=== PATIENT | female | born 1995 | race Caucasian/White ===

== ENCOUNTER 2016-04-29 14:36 | Emergency (ER) | payer BC, OTHER ==
[2016-04-29 14:47] VITALS: BP 134/81; PULSE 98; RESP 18; TEMP 98.8
--- NOTE | 2016-04-29 16:23 | ED ---
Female Urogenital HPI - General Chief complaint: OB/Uterine Contractions Stated complaint: Cramping - Preg Time Seen by Provider: 04/29/16 16:09 Source: patient, RN notes reviewed Mode of arrival: ambulatory Limitations: no limitations - History of Present Illness Initial comments: Patient is a 20-year-old female who presents to the emergency room for evaluation of abdominal cramping. Patient states she thinks she is about 17 weeks . Patient states her last menstrual period was in December. Patient states that she has been following up with Dr. Ny and has not received a ultrasound yet. Patient states her last in 2013 resulted in gastroischisis. Patient states she was told she had 50% chance of it happening to her next child. Patient states that after the abdominal cramping beginning yesterday, she started to get worried. Patient states she called her WAX BALL MOLDER and told her that the cramping was normal. Patient states she came here because would like an ultrasound to make sure everything is okay with her baby. Patient denies vaginal bleeding. Patient denies pain or burning during urination, trouble urinating or blood in urine. Patient denies any history of STDs. Patient has chest pain, shortness of breath, headache, dizziness, fevers, chills. Patient states the cramping is constant 7 out of 10 pain. Patient denies any nausea or vomiting. Last Menstrual Period: 12/24/15 - Related Data Home Medications Medication Instructions Recorded Confirmed Nif-Bvig-Okufm Acid 1 cap PO DAILY 10/06/13 10/06/13 [-U Capsule] Allergies Allergy/AdvReac Type Severity Reaction Status Date / Time hydrocodone Allergy Unknown Verified 04/29/16 15:59 Review of Systems ROS Statement: Those systems with pertinent positive or pertinent negative responses have been documented in the HPI. ROS Other: All systems not noted in ROS Statement are negative. Past Medical History Additional Past Medical History / Comment(s): HYPOGLYCEMIA History of Any Multi-Drug Resistant Organisms: None Reported Additional Past Surgical History / Comment(s): LEFT THUMB Past Psychological History: No Psychological Hx Reported Smoking Status: Former smoker Past Alcohol Use History: None Reported Past Drug Use History: None Reported General Exam - General Exam Comments Initial Comments: Sitting in exam room, no acute distress. Limitations: no limitations General appearance: alert, in no apparent distress Head exam: Present: atraumatic, normocephalic, normal inspection Eye exam: Present: normal appearance ENT exam: Present: normal exam Neck exam: Present: normal inspection Respiratory exam: Present: normal lung sounds bilaterally. Absent: respiratory distress Cardiovascular Exam: Present: regular rate, normal rhythm, normal heart sounds GI/Abdominal exam: Present: soft, normal bowel sounds. Absent: distended, tenderness, guarding, rebound, rigid Extremities exam: Present: normal inspection Back exam: Present: normal inspection Neurological exam: Present: alert, oriented X3, CN II-XII intact, normal gait Psychiatric exam: Present: normal affect, normal mood Skin exam: Present: warm, dry, intact, normal color. Absent: rash Course Vital Signs 04/29/16 14:44 Temperature 98.8 F Pulse Rate 98 Respiratory 18 Rate Blood Pressure 134/81 O2 Sat by Pulse 100 Oximetry Medical Decision Making - Medical Decision Making Patient is a 20-year-old female presents emergency room for evaluation abdominal cramping during . Patient believes she is about 17 weeks . Patient requested to have an ultrasound since she has not had one, since finding out she was . After ultrasound was complete, patient left the emergency room without telling anyone or following up with lab results. - Lab Data Lab Results 04/29/16 04/29/16 04/29/16 Range/Units 16:18 16:18 16:18 HCG, Quant 30585.5 mIU/mL Urine Color Yellow Urine Appearance Cloudy H (Clear) Urine pH 7.0 (5.0-8.0) Ur Specific [place] 1.018 (1.001-1.035) Urine Protein Trace H (Negative) Urine Glucose (UA) Negative (Negative) Urine Ketones Negative (Negative) Urine Blood Negative (Negative) Urine Nitrate Negative (Negative) Urine Bilirubin Negative (Negative) Urine Urobilinogen <2.0 (<2.0) mg/dL Ur Leukocyte Esterase Negative (Negative) Urine RBC 2 (0-5) /hpf Urine WBC 3 (0-5) /hpf Ur Squamous Epith Cells 11 H (0-4) /hpf Urine Mucus Occasional H (None) /hpf Blood Type A Positive Blood Type Recheck No - Radiology Data Radiology results: report reviewed, image reviewed Disposition Clinical Impression: Abdominal cramping affecting Disposition: Left Against Medical Advice Condition: Stable Referrals: Jian Schwartz Jr, DO [Primary Care Provider] - 1-2 days Time of Disposition: 17:30
[2016-04-29 16:40] LABS: Appearance,Urine Cloudy (Clear); Bilirubin,Urine Negative (Negative); Glucose,Urine (UA) Negative (Negative); Ketones,Urine Negative (Negative); Leukocyte Esterase,Urine Negative (Negative); Mucus,Urine Occasional /hpf; Nitrite,Urine Negative (Negative); Particle Count 6960; Protein,Urine Trace (Negative); RBC,Urine 2 /hpf (0-5); Specific Gravity,Urine 1.018 (1.001-1.035); Squamous Epithelial Cell,Urine 11 /hpf (0-4); UA Billing (MACRO vs. MICRO) MICRO; Urobilinogen,Urine <2.0 mg/dL (<2.0); WBC,Urine 3 /hpf (0-5)
--- NOTE | 2016-04-29 17:51 | US ---
EXAMINATION TYPE: US OB <= 14 wk fetus DATE OF EXAM: 04/29/2016 5:10 PM COMPARISON: None CLINICAL HISTORY: Pain. EXAM PERFORMED: Transabdominal (TA) EXAM MEASUREMENTS GESTATIONAL AGE / DATING Physician Established: not yet established Dates by LMP: (17 weeks/3 days) EDC: 10/04/16 Dates by First Scan: 1st scan today Dates by Current Scan for: (12 weeks/1 days) EDC: 11/10/16 MATERNAL ANATOMY Uterus: 13.6 x 7.1 x 9.7cm Right Ovary: 3.4 x 2.2 x 1.8cm Left Ovary: 3.1 x 1.6 x 1.6cm Post CDS / Adnexa: wnl Presence of free fluid: no GESTATION / SURVEY CRL: 5.6cm 12weeks/1 days) Yolk Sac (normal less than 6mm): not seen Heart Rate: 161pm Rhythm: Normal IUP: Viable IUP Date of LMP: patient doesn't remember, but believes date was set by LMP IMPRESSION: SINGLE VIABLE IUP.
== END 2016-04-29 17:26 | disposition left against medical advice (07) ==
LOC: EC 14:36
DX: O99.89 Other specified diseases and conditions complicating pregnancy, childbirth and the puerperium (principal); R07.9 Chest pain, unspecified; R06.02 Shortness of breath; R51 Headache; R42 Dizziness and giddiness; Z3A.17 17 weeks gestation of pregnancy; Z87.891 Personal history of nicotine dependence; Z79.899 Other long term (current) drug therapy; Z88.5 Allergy status to narcotic agent
CPT/HCPCS: 36415; 76801; 76813; 81001; 84702; 86900; 86901; 99284

== ENCOUNTER 2016-09-09 12:08 | Outpatient (CLI) | payer BC, OTHER ==
[2016-09-09 13:22] VITALS: BP 135/63; PULSE 89; RESP 18; TEMP 97.5
--- NOTE | 2016-09-15 07:45 | P.MSEPDOC ---
Presenting Problems - Arrival Data Date of Arrival on Unit: 09/09/16 Time of Arrival on Unit: 12:20 Mode of Transport: Ambulatory - Complaint OB-Reason for Admission/Chief Complaint: Dizziness Comment: Pt was light-headed, dizzy, hot, and felt her abdomen tighen while working Medical History - Information : 2 Para: 1 Term: 1 : 0 Abortions: Spontaneous or Elective: 0 Number of Living Children: 1 - Gestational Age Expected Date of Delivery: 11/12/16 Gestational Age by CHANCE (wks/days): 31 Weeks and 5 Days Review of Systems - Review of Systems Constitutional: No problems, Recent weight loss Breast: No problems ENT: No problems Cardiovascular: No problems Respiratory: No problems Gastrointestinal: No problems Genitourinary: No problems Musculoskeletal: No problems Neurological: Dizziness Skin: No problems Vital Signs - Temperature Temperature: 97.5 F Temperature Source: Temporal Artery Scan - Pulse Pulse Oximetery Pulse Rate: 89 Pulse Assessment Method: Automatic Cuff - Respirations Respiratory Rate: 18 Oxygen Delivery Method: Room Air - Blood Pressure Right Arm Blood Pressure: 135/63 Blood Pressure Mean: 87 Blood Pressure Source: Automatic Cuff Medical Screen Scoring (Pre) - Cervical Exam Dilation: Exam Deferred Effacement: Exam Deferred Membranes: Intact - Uterine Contractions Frequency: N/A - Maternal Vital Signs Maternal Temperature: N/A Signs of Preeclampsia: N/A Maternal Respirations: N/A - Maternal Trauma Maternal Trauma: N/A - Assessment Baseline FHR: 125 Heart Rate - NICHD Category: Category I (Normal) = 0 NST: Reactive Position: N/A Station: N/A - Total Score Total Score (Pre): 0 - Level of Risk Level of Risk: Low (0-5) Physician Notification (Pre) - Physician Notified Physician Notified Date: 09/09/16 Physician Notified Time: 12:50 Physician/Practitioner Notifed:: Dr Rosenberg Spoke With: Dr Rosenberg New Order Received: Yes - Notification Comment Comment: Ok to discharge home Disposition - Disposition OB Disposition: Discharge to home Discharge Date: 09/09/16 Discharge Time: 12:55 I agree with the RN Medical Screening Exam: Yes Risk & Benefit of care provided described in d/c instruction: Yes Diagnosis: DIZZINESS AND GIDDINESS
== END 2016-09-09 12:55 | disposition home or self-care (01) ==
LOC: FBPOP 12:08
PROVIDERS: ATTEND Obstetrics & Gynecology
DX: O99.89 Other specified diseases and conditions complicating pregnancy, childbirth and the puerperium (principal); R42 Dizziness and giddiness; Z3A.31 31 weeks gestation of pregnancy
CPT/HCPCS: 59025; 99213

== ENCOUNTER 2016-11-04 03:22 | Inpatient (IN) | payer BC, OTHER ==
[2016-11-04] MEDS ORDERED: ceFAZolin 2 GM in SODIUM CHLORIDE 0.9% 100 ML IVPB ONE (04:36)
[2016-11-04] MEDS ORDERED: CITRIC ACID-SODIUM CITRATE 15 ML CUP PO ONE (04:36)
[2016-11-04] MEDS: LACTATED RINGERS 1,000 ML IV SCH ×2 (05:13→14:30)
[2016-11-04 05:16] LABS: Anisocytosis Slight; Basophils # (A) 0.1 k/uL (0-0.2); Basophils % (A) 0 %; CH 29.8; CHCM 33.4; Eosinophils # (A) 0.1 k/uL (0-0.7); Eosinophils % (A) 1 %; HCT 37.4 % (34.0-46.0); HGB 12.1 gm/dL (11.4-16.0); Luc # (Auto) 0.21; Luc % (Auto) 2; Lymphocytes # (A) 2.1 k/uL (1.0-4.8); Lymphocytes % (A) 20 %; MCH 29.1 pg (25.0-35.0); MCHC 32.3 g/dL (31.0-37.0); Mean Platelet Volume 8.5; Monocytes # (A) 0.7 k/uL (0-1.0); Monocytes % (A) 7 %; Neutrophils # (A) 7.6 k/uL (1.3-7.7); Neutrophils % (A) 70 %; RBC 4.16 m/uL (3.80-5.40); RDW 16.1 % (11.5-15.5); WBC 10.8 k/uL (3.8-10.6); WBC (Perox) 11.26
[2016-11-04 05:19] VITALS: BMI 35.0
--- NOTE | 2016-11-04 07:20 | P.HPOB ---
History of Present Illness H&P Date: 11/04/16 Chief Complaint: My water broke at 4 AM, clear fluid This is a 21-year-old white female 2 para 1001 EDC 11/12/2016 at 38-6/7 weeks' gestation. Patient is scheduled for repeat section and tubal ligation tomorrow at 39 weeks. However, she presents this morning with spontaneous rupture of membranes, clear fluid at approximately 4 AM. She is having regular strong uterine contractions and is noted to be in active labor. She denies vaginal bleeding. Past surgical history significant for low transverse section for gastroschisis in 2013. Current medications vitamins daily. ALLERGIES include Vicodin to which reports passing out. Past social history is significant for patient being single, father of the baby involved in the . 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 Family history significant for hypertension and gastroschisis. history blood type A+, rubella status immune. Urine culture, hepatitis B surface antigen, HIV testing, gonorrhea and chlamydia cultures, 1 hour Glucola all negative. Group B strep cultures negative. On exam this is a pleasant white female, she is 5 foot 6 inches, approximately 220 pounds, vital signs are stable and she is afebrile. The general physical exam is within normal limits. The extremities reveal no edema. Cervix is 1-2 cm dilated, 50-60% effaced, -2 station, vertex presentation. There is obvious clear fluid on the perineal body. heart rate is consistent with reactive NST. Impression: 38-6/7 weeks intrauterine , active labor, previous C- section declining . Wishing permanent tubal sterilization utilizing sutures , not Filshie clips. Plan: We will proceed with repeat low transverse section and tubal ligation via modified Tat[place] technique. All risks and benefits of procedure have been discussed. Anesthesia team available. Review of Systems Constitutional: Reports as per HPI Past Medical History Past Medical History: No Reported History Additional Past Medical History / Comment(s): HYPOGLYCEMIA History of Any Multi-Drug Resistant Organisms: None Reported Past Surgical History: No Surgical Hx Reported Additional Past Surgical History / Comment(s): LEFT THUMB Past Anesthesia/Blood Transfusion Reactions: No Reported Reaction Past Psychological History: No Psychological Hx Reported Smoking Status: Never smoker Past Alcohol Use History: None Reported Past Drug Use History: None Reported - Past Family History Father Family Medical History: Hypertension Medications and Allergies Home Medications Medication Instructions Recorded Confirmed Type Pnv No.95/Ferrous Fum/Folic AC 1 each PO DAILY 11/03/16 11/04/16 History [ Multivitamin Tablet] Allergies Allergy/AdvReac Type Severity Reaction Status Date / Time hydrocodone Allergy passed out Verified 11/04/16 03:53 Exam - Vital Signs Vital signs: Vital Signs Temp Pulse Resp BP Pulse Ox 11/04/16 04:39 97 F L 82 18 143/71 98 11/04/16 03:54 97.0 F L 85 18 132/75 98 Intake and Output 11/03/16 11/04/16 11/04/16 22:59 06:59 14:59 Other: Weight 98.43 kg See dictation under HPI please Results Result Diagrams: 11/04/16 05:05 Abnormal Lab Results - Last 24 Hours (Table) 11/04/16 Range/Units 05:05 WBC 10.8 H (3.8-10.6) k/uL RDW 16.1 H (11.5-15.5) % Assessment and Plan Plan: For repeat low transverse section and tubal ligation with modified [place] technique. All risks and benefits of procedure discussed with patient. She has been nothing by mouth since 11 PM last night. Time with Patient: Less than 30
[2016-11-04] MEDS ORDERED: DEXAMETHASONE SOD PHOS (MDV) 100 MG/10 ML VIAL ONE (07:36)
[2016-11-04] MEDS ORDERED: KETOROLAC 30 MG/ML 1 ML VIAL ONE (07:36)
[2016-11-04] MEDS ORDERED: OXYTOCIN 10 UNIT/ML 1 ML VIAL ONE (07:36)
[2016-11-04] MEDS ORDERED: ONDANSETRON 4 MG/2 ML VIAL ONE (07:36)
[2016-11-04] MEDS ORDERED: ePHEDrine SULFATE/0.9% NACL/PF 50 MG/5 ML SYRINGE IV ONE (07:36)
[2016-11-04] MEDS ORDERED: MORPHINE SULFATE (PF) 0.3 MG/0.3 ML SYR ONE (07:36)
[2016-11-04] MEDS ORDERED: NALBUPHINE 10 MG/ML AMPUL ONE (07:36)
[2016-11-04] MEDS ORDERED: METOCLOPRAMIDE 5 MG/ML 2 ML VIAL IVP PRN (08:28)
[2016-11-04] MEDS ORDERED: KETOROLAC 30 MG/ML 1 ML VIAL IVP PRN (08:28)
[2016-11-04] MEDS ORDERED: diphenhydrAMINE 25 MG CAP PO PRN (08:28)
[2016-11-04] MEDS ORDERED: ZOLPIDEM 5 MG TAB PO PRN (08:28)
[2016-11-04] MEDS ORDERED: diphenhydrAMINE 50 MG CAP PO PRN (08:28)
[2016-11-04] MEDS ORDERED: ACETAMINOPHEN TAB 325 MG TAB PO PRN (08:28)
[2016-11-04] MEDS ORDERED: NALOXONE 0.4 MG/ML 1 ML VIAL IV PRN (08:28)
[2016-11-04] MEDS ORDERED: ONDANSETRON 4 MG/2 ML VIAL IVP PRN (08:28)
[2016-11-04] MEDS ORDERED: diphenhydrAMINE 50 MG/ML 1 ML VIAL IVP PRN ×2 (08:28)
--- NOTE | 2016-11-04 08:28 | P.OP ---
Date of Procedure: 11/04/16 Preoperative Diagnosis: Previous , declining , 38-6/7 weeks, spontaneous rupture of membranes in active labor. Postoperative Diagnosis: Same, liveborn female infant with right club foot. Normal-appearing tubes and ovaries. Procedure(s) Performed: Repeat low transverse section with tubal ligation, modified ashvin technique. Implants: Anesthesia: spinal Surgeon: Lashae Ny Costume Draper #1: Darshan Rosenberg Estimated Blood Loss (ml): 500 IV fluids (ml): 1,000 Urine output (ml): 600 Pathology: other (Placenta, and bilateral tubal segments) Condition: stable Disposition: PACU Indications for Procedure: Operative Findings: Description of Procedure: Patient is scheduled for repeat section tomorrow, but presents with spontaneous amniorrhexis at home, clear fluid, and active labor. She denies vaginal bleeding. She has been nothing by mouth since 11 PM the night prior to admission. is otherwise unremarkable, group B strep cultures negative , please see my dictated history and physical for details. Bicitra is given, Tamez catheter placed, patient is brought to the operating room where a spinal analgesia is administered without difficulty per Dr. Quintero. She is placed in the dorsal supine position with left lateral uterine displacement. The abdomen is prepped and draped in usual sterile fashion. The appropriate timeout is performed. Antibiotics are given. The analgesia is checked and noted to be adequate. A repeat low transverse skin incision is made in this is carried down through the subcutaneous tissue which is approximately 6-8 cm deep. Fascia is isolated, scored and extended bilaterally with curved Devine scissors. Peritoneum is next identified and incised, there is no bowel or bladder involvement. The bladder flap is created and the bladder blade is placed over the dome of the bladder to avoid bladder and/or ureteral injury. A repeat low transverse uterine incision is made in this is carried down through the thin myometrium. Upon entering the uterine cavity clear fluid is noted. The incision is extended bluntly. The infant's head is delivered in the right occiput transverse position. The oropharynx, nasopharynx and external nares were all bulb suctioned. Patient is officially delivered of a liveborn female infant at 0757 hours. Umbilical cord is doubly clamped and ligated, she is handed to waiting nurses for evaluation where scores of 9 and 9 at one and 5 minutes respectively are given. The placenta is delivered manually, it is inspected and noted to be intact with trivascular cord at 0758 hours. The uterus is then externalized and massaged. Oxytocin is given. The uterus is swept clean with a sterile sponge to avoid any retained products of conception. The uterus is closed in a single full- thickness running locking stitch of 0 Vicryl for excellent reapproximation and hemostasis. Patient's wishes for tubal ligation is once again confirmed. The right fallopian tube is grasped in the isthmic portion. The mesal salpinx is opened with electrocautery. 0 Vicryl sutures used to tie the tube with 3 kn, a large loop of tube is created and retied on the opposite and. The suture is cut. And the tube was retied a second time firmly with 0 Vicryl suture. The tubal section is then removed with electrocautery. It is sent to pathology for evaluation. The stumps are cauterized for excellent hemostasis. Please note that the fimbriated end of the tube has been identified for proper technique. Ovary appears normal to inspection. The same procedure is carried out on the contralateral tube, again with segment of tube sent to pathology for evaluation. Left ovary also appears normal. The abdomen is suctioned with suction on guard and the uterus is gently placed back into the abdominal cavity. Bilateral gutters are inspected and cleaned. The peritoneum is allowed to close by secondary intention. The fascia is closed in a running stitch of 0 Vicryl with over ligation in the midline. Subcutaneous tissue is irrigated, inspected and noted to be clean and dry. It is reapproximated with 3-0 Vicryl in a running fashion. 4-0 undyed Vicryl issues for final skin closure. Steri-Strips and Mastisol are applied to the wound. Uterus is then massaged, a small amount of lochia is obtained. The incision is dressed. The urine is noted to be clear in the Tamez tube. All sponge needle and enhancement counts are correct at the end of our procedure. Patient is brought back to the recovery room in very good condition with stable vital signs including a pulse of 88, blood pressure 120/60, 100% O2 saturation. Baby weighed 8 lbs. 7 oz. or 3840 g. In inspecting the baby a right clubfoot is suspected. This will be discussed with larder cook and further recommendations will follow.
[2016-11-04] MEDS ORDERED: LACTATED RINGERS 1,000 ML IV SCH (08:30)
--- NOTE | 2016-11-05 07:16 | P.PN ---
Subjective Principal diagnosis: Postoperative day #1 Objective - Vital Signs Vital signs: Vital Signs Temp 97.9 F 11/05/16 04:00 Pulse 86 11/05/16 04:00 Resp 16 11/05/16 04:00 BP 107/76 11/05/16 04:00 Pulse Ox 98 11/05/16 00:00 Intake & Output 11/04/16 11/05/16 11/05/16 18:59 06:59 18:59 Output Total 2700 600 Balance -2700 -600 Output: Urine 2200 600 Uretheral (Tamez) 600 600 Estimated Blood Loss 500 Other: # Voids 1 0 - Constitutional General appearance: Present: average body habitus, cooperative - EENT Eyes: Present: PERRLA ENT: Present: hearing grossly normal - Respiratory Respiratory: bilateral: CTA - Cardiovascular Rhythm: regular - Gastrointestinal General gastrointestinal: Present: normal bowel sounds - Genitourinary Genitourinary Comment(s): Fundus firm, midline, symmetric, 18 week size. Active bowel sounds. Incision clean and dry, intact with Steri-Strips applied. - Integumentary Integumentary: Present: normal - Neurologic Neurologic: Present: CNII-XII intact - Musculoskeletal Musculoskeletal: Present: gait normal, strength equal bilaterally - Psychiatric Psychiatric: Present: A&O x's 3, appropriate affect, intact judgment & insight - Labs CBC & Chem 7: 11/04/16 05:05 Assessment and Plan Plan: Check CBC this morning. Advance Diet and activity. Time with Patient: Less than 30
[2016-11-05 07:41] LABS: Basophils % (A) 0 %; CH 28.5; CHCM 32.4; Eosinophils # (A) 0.1 k/uL (0-0.7); Eosinophils % (A) 1 %; HCT 29.3 % (34.0-46.0); HDW 2.89; Luc # (Auto) 0.25; Luc % (Auto) 3; Lymphocytes # (A) 2.3 k/uL (1.0-4.8); Lymphocytes % (A) 24 %; MCH 29.3 pg (25.0-35.0); MCHC 33.1 g/dL (31.0-37.0); MCV 88.5 fL (80.0-100.0); Mean Platelet Volume 8.1; Monocytes # (A) 0.6 k/uL (0-1.0); Monocytes % (A) 7 %; Neutrophils # (A) 6.3 k/uL (1.3-7.7); Neutrophils % (A) 66 %; RBC 3.31 m/uL (3.80-5.40); RDW 15.1 % (11.5-15.5); WBC 9.6 k/uL (3.8-10.6); WBC (Perox) 9.82
[2016-11-05 07:47] LABS: HGB 9.7 gm/dL (11.4-16.0)
--- NOTE | 2016-11-05 09:27 | P.PN ---
Progress Note - Text Date:11/05 Time:705 Patient is status post . Patient seen this morning with VAS score of 2. c/o of pruritus, no c/o nausea/vomiting, comfortable and doing well.
[2016-11-05] MEDS: SENNOSIDES-DOCUSATE SODIUM 1 EACH TAB PO SCH ×2 (13:19→23:51)
[2016-11-05] MEDS: IBUPROFEN 600 MG TAB PO PRN ×2 (15:01→23:50)
[2016-11-06] MEDS: IBUPROFEN 600 MG TAB PO PRN (08:23)
--- NOTE | 2016-11-06 08:50 | P.DS ---
Providers Date of admission: 11/04/16 04:28 Expected date of discharge: 11/06/16 Attending physician: Lashae Ny Primary care physician: Stated None Hospital Course: This is a 21 year old 2 para 1001 who presented to the hospital in active labor with spontaneous amniorrhexis, clear fluid. She had a history of a previous section, and is declining . She is choosing repeat C- section with tubal ligation. was unremarkable, group B strep cultures negative, rubella status immune. Please see my dictated history and physical for details. A spinal was placed and patient underwent a repeat low transverse section with tubal ligation. She did well intraoperatively with an estimated blood loss of 500 mL's. She gave to a liveborn female with scores of 9 and 9 at one and 5 minutes respectively. Infant weighed 3840 g or 8 lbs. 7 oz. was noted to be in the right occiput transverse position. Tubal ligation was performed, please see my dictated operative note for details. This morning the patient is doing well. She is voiding, ambulating and passing flatus without difficulty. Vital signs are stable and she is afebrile. Incision is clean and dry, intact, with Steri-Strips and Mastisol applied. Fundus is firm, midline, mobile and non-tender. Pain relief is adequate using ibuprofen products. Patient claims to have a hydrocodone ALLERGY. She is being discharged home today in good condition. She will follow-up with me in the office in 2 weeks for an incision check. I have reminded her no intercourse, tampons or douching. She will use [id number] Aleve products , as directed on the bottle. I have asked her to call me with any fevers shakes or chills, foul smelling or copious lochia, with the passage of large blood clots, with any pain not alleviated by Aleve, or indeed with any concerns. will follow-up with agricultural loan officer as recommended. Patient Condition at Discharge: Good Plan - Discharge Summary New Discharge Prescriptions: No Action Pnv No.95/Ferrous Fum/Folic AC [ Multivitamin Tablet] 1 each PO DAILY Discharge Medication List Pnv No.95/Ferrous Fum/Folic AC [ Multivitamin Tablet] 1 each PO DAILY [History] Follow up Appointment(s)/Referral(s): Lashae Ny MD [STAFF PHYSICIAN] - 2 Weeks Discharge Disposition: HOME SELF-CARE
[2016-11-06 09:21] VITALS: BP 116/79; PULSE 72; RESP 17; TEMP 98.2
[2016-11-06] MEDS: SENNOSIDES-DOCUSATE SODIUM 1 EACH TAB PO SCH (09:29)
== END 2016-11-06 12:50 | disposition home or self-care (01) | DRG 766 ==
LOC: FBPOP 03:22 → 4FBP 04:28
PROVIDERS: ADMIT Obstetrics & Gynecology; ATTEND Obstetrics & Gynecology
PROC: 0UB70ZZ Excision of Bilateral Fallopian Tubes, Open Approach (ICD-10-PCS; 2016-11-04)
PROC: 10D00Z1 Extraction of Products of Conception, Low, Open Approach (ICD-10-PCS; principal; 2016-11-04 07:37)
DX: O34.211 Maternal care for low transverse scar from previous cesarean delivery (principal); O75.82 Onset (spontaneous) of labor after 37 completed weeks of gestation but before 39 completed weeks gestation, with delivery by (planned) cesarean section; Z3A.38 38 weeks gestation of pregnancy; Z37.0 Single live birth; Z30.2 Encounter for sterilization; Z79.899 Other long term (current) drug therapy; Z88.5 Allergy status to narcotic agent
CPT/HCPCS: 59025; 84112; 85025; 86850; 86900; 86901; 88302; 88307; 99213

== ENCOUNTER 2018-06-29 10:28 | Day surgery (SDC) | payer BC ==
[2018-06-27 12:56] VITALS: BMI 29.9
[~2018-06-29 10:28] MED LIST: LACTATED RINGERS 1,000 ML IV SCH; LIDOCAINE 1% 20 ML VIAL (10MG/ML) FOR IV START INTRADERMA PRN; MIDAZOLAM (PF) 2 MG/2 ML VIAL IV PRN
[2018-06-29 11:37] VITALS: RESP 16; TEMP 97.8
[2018-06-29] MEDS ORDERED: MIDAZOLAM 2 MG/2 ML VIAL ONE (13:11)
[2018-06-29] MEDS ORDERED: PROPOFOL 10 MG/ML 20 ML VIAL IV ONE (13:11)
[2018-06-29] MEDS ORDERED: LIDOCAINE 1% INJ 10MG/ML (20 ML MDV) ONE (13:11)
--- NOTE | 2018-06-29 13:53 | P.PCN ---
Date of Procedure: 06/29/18 Procedure(s) Performed: PREOPERATIVE DIAGNOSIS: Rectal bleeding POSTOPERATIVE DIAGNOSIS: Small posterior anal fissure PROCEDURE: Colonoscopy ANESTHESIA: MAC SURGEON: Shamir Holland M.D. SPECIMENS: None ENDOSCOPIC PROCEDURE: The patient was placed on the endoscopy table in the left decubitus position. The Olympus colonoscope was inserted into the anus and passed under direct visualization to the base of the cecum. The appendiceal orifice was visualized. From that point the scope was slowly withdrawn inspecting all surfaces carefully. There were no neoplastic inflammatory or polypoid lesions throughout the cecum, ascending, transverse, descending, sigmoid and rectum. There was no visible diverticulosis noted. Digital rectal examination revealed mild induration posteriorly. The anoscope was also utilized. With anus scope was able to identify a small posterior anal fissure. A small area of bleeding was seen there. The patient was taken to the recovery room in stable condition per anesthesia guidelines. RECOMMENDATIONS: We'll begin nitroglycerin ointment. Patient will follow-up in the office of symptoms persist.
[2018-06-29 14:26] VITALS: BP 137/89; PULSE 71
== END 2018-06-29 15:21 | disposition home or self-care (01) ==
LOC: ORWHC2ENDO 10:28
PROVIDERS: ATTEND Surgery
DX: K60.2 Anal fissure, unspecified (principal); Z88.5 Allergy status to narcotic agent; Z79.899 Other long term (current) drug therapy; F17.210 Nicotine dependence, cigarettes, uncomplicated
CPT/HCPCS: 81025; 45378; J2250; J2001; J2704

== ENCOUNTER 2018-11-21 09:05 | Emergency (ER) | payer BC ==
[2018-11-21 09:08] VITALS: BP 120/78; PULSE 80; RESP 18; TEMP 98
[2018-11-21] MEDS ORDERED: LIDOCAINE 1% INJ 10MG/ML (20 ML MDV) SQ ONE (09:15)
--- NOTE | 2018-11-21 09:24 | ED ---
Wound/Laceration HPI - General Chief Complaint: Wound/Laceration Stated Complaint: lt foot lac Time Seen by Provider: 11/21/18 09:09 Source: patient Mode of arrival: ambulatory Limitations: no limitations - History of Present Illness Initial Comments: A resident 23-year-old feel presented laceration to left heel. Patient states that she was in her attic when she struck her heel on a metal object. Patient states that it is not very painful however she noticed she was bleeding. This is around 8 PM at night. Patient states that she cleaned out the area and applied Band-Aids and went to bed. Patient states she noticed that the wound edges were gaping and thought might need repair presents emergency department in the morning for evaluation. Patient states that her tetanus up-to-date. Patient denies injury to the ankle or foot. Remaining review systems negative patient appears well upon arrival ambulate ambulating without difficulty. - Related Data Home Medications Medication Instructions Recorded Confirmed Dextroamphetamine/Amphetamine 20 mg PO BID 02/20/18 06/29/18 [Adderall] Allergies Allergy/AdvReac Type Severity Reaction Status Date / Time hydrocodone Allergy passed out" Verified 11/21/18 09:08 Review of Systems ROS Statement: Those systems with pertinent positive or pertinent negative responses have been documented in the HPI. ROS Other: All systems not noted in ROS Statement are negative. Past Medical History Past Medical History: No Reported History Additional Past Medical History / Comment(s): HEART MURMUR. HYPOGLYCEMIA AT AGE 14, RESOLVED. HAVING BLOOD IN STOOL History of Any Multi-Drug Resistant Organisms: None Reported Past Surgical History: Section, Tubal Ligation Additional Past Surgical History / Comment(s): WISDOM TEETH. LT THUMB TENDON SURGERY , C-S X2. Past Anesthesia/Blood Transfusion Reactions: No Reported Reaction Past Psychological History: ADD/ADHD Smoking Status: Current some day smoker Past Alcohol Use History: None Reported Past Drug Use History: None Reported - Past Family History Mother Family Medical History: Cancer Father Family Medical History: Hypertension General Exam - General Exam Comments Initial Comments: General: The patient is awake and alert, in no distress, and does not appear acutely ill. Eye: Pupils are equal, round and reactive to light, extra-ocular movements are intact. No nystagmus. There is normal conjunctiva bilaterally. No signs of icterus. Cardiovascular: There is a regular rate and rhythm. No murmur, rub or gallop is appreciated. Respiratory: Lungs are clear to auscultation, respirations are non-labored, breath sounds are equal. No wheezes, stridor, rales, or rhonchi. Musculoskeletal: Normal ROM, no tenderness. Strength 5/5. Sensation intact. Pulses equal bilaterally 2+. Neurological: A&O x 3. CN II-XII intact, There are no obvious motor or sensory deficits. Coordination appears grossly intact. Speech is normal. Skin: Skin is warm and dry and no rashes or lesions are noted. 2 cm curvilinear laceration that appears superficial no exposure of underlying structures or foreign body of the left posterior heel, and calloused region. No active bleeding. Psychiatric: Cooperative, appropriate mood & affect, normal judgment. Limitations: no limitations Course Vital Signs 11/21/18 09:06 Temperature 98.0 F Pulse Rate 80 Respiratory 18 Rate Blood Pressure 120/78 O2 Sat by Pulse 99 Oximetry Procedures - Laceration Laceration #1 Consent Obtained: verbal consent Indication: laceration Site: foot Size (cm): 2 Description: irregular, clean Depth: simple, single layer Anesthetic Used: lidocaine 1% Pre-repair: wound explored, irrigated extensively, deep structures intact Size of Sutures: 4-0 Number of Sutures: 5 Technique: simple, interrupted Patient Tolerated Procedure: well, no complications Additional Comments: Wound was extensively irrigated and cleansed with iodine prior to closure. Patient did not prefer lidocaine use she states she would rather have it without anesthesia given the pain with lidocaine use. Medical Decision Making - Medical Decision Making Well-appearing 23-year-old female presented for a laceration. Patient has no other complaints no swelling patient is neurovascularly intact upon examination the foot. Laceration is very superficial no evidence of foreign body or damage to underlying structures. In the region near a callus. No active bleeding. Tetanus up-to-date per patient. Wound was closed. Patient however procedure well without local anesthetic. Return parameters were discussed for suture removal as well as wound care. Patient verbalized understanding and was discharged appearing well after discussing the case with attending provider Dr. Escobedo Disposition Clinical Impression: Laceration of heel without complication Disposition: HOME SELF-CARE Condition: Good Instructions (If sedation given, give patient instructions): Care For Your Stitches (ED), Laceration (ED) Additional Instructions: Please use medication as discussed. Please follow-up for suture removal in 7 days. Please return to emergency room if the symptoms increase or worsen or for any other concerns--including redness, drainage, increasing pain. Is patient prescribed a controlled substance at d/c from ED?: No Referrals: Tima Chung MD [Primary Care Provider] - 1-2 days Time of Disposition: 10:04
== END 2018-11-21 10:10 | disposition home or self-care (01) ==
LOC: EC 09:05
DX: S91.312A Laceration without foreign body, left foot, initial encounter (principal); F90.9 Attention-deficit hyperactivity disorder, unspecified type; F17.200 Nicotine dependence, unspecified, uncomplicated; Z79.899 Other long term (current) drug therapy; Z88.5 Allergy status to narcotic agent; W22.8XXA Striking against or struck by other objects, initial encounter; Y92.89 Other specified places as the place of occurrence of the external cause
CPT/HCPCS: 99282; 12001; J2001

== ENCOUNTER 2018-12-15 10:41 | Day surgery (SDC) | payer BC ==
[2018-12-11 11:15] VITALS: BMI 29.9
[~2018-12-15 10:41] MED LIST changes: +DEXAMETHASONE SOD PHOSPHATE 10 MG/ML 1 ML VIAL IV ONE; +HEPARIN SODIUM,PORCINE 5,000 UNIT/ML 1 ML VIAL SQ ONE; -LIDOCAINE 1% 20 ML VIAL (10MG/ML) FOR IV START INTRADERMA PRN; +LIDOCAINE 1% 20 ML VIAL (10MG/ML) FOR IV START SQ ONE; -MIDAZOLAM (PF) 2 MG/2 ML VIAL IV PRN; +MIDAZOLAM 2 MG/2 ML VIAL IV PRN; +ONDANSETRON 4 MG/2 ML VIAL IVP ONE; +SCOPOLAMINE 1.5MG/72HR PATCH TRANSDERM ONE; +fentaNYL (PF) 50 MCG/ML 2 ML AMP IV PRN; +metroNIDAZOLE-NS PMX 500 MG in SALINE 1 100ML.BAG IVPB ONE
[2018-12-15] MEDS ORDERED: BUPIVACAINE (PF) 0.25% 30 ML VIAL SQ ONE ×2 (12:16)
[2018-12-15] MEDS ORDERED: KETOROLAC 30 MG/ML 1 ML VIAL ONE (12:18)
[2018-12-15] MEDS ORDERED: MIDAZOLAM 2 MG/2 ML VIAL ONE (12:18)
[2018-12-15] MEDS ORDERED: fentaNYL (PF) 50 MCG/ML 2 ML AMP ONE (12:18)
[2018-12-15] MEDS ORDERED: PROPOFOL 10 MG/ML 20 ML VIAL IV ONE (12:18)
[2018-12-15] MEDS ORDERED: LIDOCAINE 1% INJ 10MG/ML (20 ML MDV) ONE (12:18)
[2018-12-15] MEDS ORDERED: SUCCINYLCHOLINE CHLORIDE 100 MG/5 ML SYR IV ONE (12:18)
[2018-12-15] MEDS ORDERED: LACTATED RINGERS 1,000 ML IV ONE (12:51)
[2018-12-15] MEDS ORDERED: NALOXONE 0.4 MG/ML 1 ML VIAL IV PRN (12:57)
[2018-12-15] MEDS ORDERED: HYDROcodone/APAP 5-325MG 1 EACH TAB PO PRN (12:57)
--- NOTE | 2018-12-15 13:00 | P.OP ---
Date of Procedure: 12/15/18 Procedure(s) Performed: PREOPERATIVE DIAGNOSIS: Chronic anal fissure POSTOPERATIVE DIAGNOSIS: Same PROCEDURE: Lateral internal sphincterotomy SURGEON: Amalia EBL: 5 mL ANESTHESIA: General COMPLICATIONS: None OPERATIVE PROCEDURE: Patient placed in the operating table in the prone jackknife position after general anesthesia achieved. The perianal region was prepped and draped sterilely. On the right side of the anal canal a longitudinal incision was made. The internal sphincter was encircled with a hemostat. This was then divided using electrocautery. No bleeding was seen. Area was localized with Marcaine. DISPOSITION: Stable to recovery room
[2018-12-15 13:14] VITALS: TEMP 97.2
[2018-12-15 13:22] VITALS: RESP 16
[2018-12-15 14:12] VITALS: BP 134/87; PULSE 85
== END 2018-12-15 14:30 | disposition home or self-care (01) ==
LOC: OR 10:41
PROVIDERS: ATTEND Surgery
DX: K60.1 Chronic anal fissure (principal); F90.9 Attention-deficit hyperactivity disorder, unspecified type; E16.2 Hypoglycemia, unspecified; Z88.5 Allergy status to narcotic agent; Z79.899 Other long term (current) drug therapy; F17.200 Nicotine dependence, unspecified, uncomplicated; Z98.890 Other specified postprocedural states; Z82.49 Family history of ischemic heart disease and other diseases of the circulatory system; Z82.79 Family history of other congenital malformations, deformations and chromosomal abnormalities
CPT/HCPCS: 81025; 46080; J2250; J1644; J1100; J0690; J2405; J2001; J3010; J1885; J0330; J2704

== ENCOUNTER 2020-06-26 21:41 | Emergency (ER) | payer BC ==
[2020-06-26 21:55] VITALS: BP 145/104
--- NOTE | 2020-06-26 22:29 | XR ---
EXAMINATION TYPE: XR chest 2V DATE OF EXAM: 06/26/2020 COMPARISON: NONE HISTORY: Short of breath TECHNIQUE: 2 views FINDINGS: Heart and mediastinum are normal. Lungs are clear. Diaphragm is normal. Bony thorax appears normal IMPRESSION: Normal chest.
[2020-06-26] MEDS ORDERED: IBUPROFEN 600 MG TAB PO STA (23:25)
[2020-06-26] MEDS ORDERED: guaiFENesin-DM 600/30MG 1 EACH TAB.ER.12H PO STA (23:25)
[2020-06-27 00:04] LABS: Appearance,Urine Cloudy (Clear); Bacteria,Urine Rare /hpf; Bilirubin,Urine Negative (Negative); Blood,Urine Negative (Negative); Color,Urine Yellow; Glucose,Urine (UA) Negative (Negative); Ketones,Urine Negative (Negative); Leukocyte Esterase,Urine Negative (Negative); Mucus,Urine Rare /hpf; Nitrite,Urine Negative (Negative); Protein,Urine Negative (Negative); RBC,Urine 2 /hpf (0-5); Squamous Epithelial Cell,Urine 4 /hpf (0-4); Urobilinogen,Urine <2.0 mg/dL (<2.0); WBC,Urine <1 /hpf (0-5)
[2020-06-27 00:08] VITALS: RESP 18
--- NOTE | 2020-06-27 00:40 | ED ---
URI HPI - General Chief Complaint: Upper Respiratory Infection Stated Complaint: Fever,SOB,Cough Time Seen by Provider: 06/26/20 23:07 Source: patient Mode of arrival: ambulatory Limitations: no limitations - History of Present Illness Initial Comments: 24-year-old female patient presents to the emergency department today reporting cough, fever, sore throat. Symptoms started a couple days ago. She denies any nausea or vomiting. Denies diarrhea. Denies any rash. denies any shortness of breath with states she is having some chest pressure. Denies any urinary symptoms. Denies chance of . Patient denies any abdominal pain, nausea, constipation, back pain, numbness, tingling, dizziness, weakness, hematuria, dysuria, urinary urgency, urinary frequency, headache, visual changes, or any other complaints. - Related Data Home Medications Medication Instructions Recorded Confirmed Dextroamphetamine/Amphetamine 20 mg PO BID 02/20/18 12/15/18 [Adderall] Previous Rx's Medication Instructions Recorded Hydrocodone/Acetaminophen [[place] 1 tab PO Q6HR PRN 3 Days #10 tab 12/15/18 5-325] Albuterol Sulfate [Proair Hfa] 1 - 2 puff INHALATION Q6HR PRN #1 06/27/20 inhaler guaiFENesin-DM 600/30MG [Mucinex 2 each PO Q12HR PRN #20 tab.er.12h 06/27/20 Dm] Allergies Allergy/AdvReac Type Severity Reaction Status Date / Time hydrocodone Allergy passed out" Verified 06/26/20 21:55 Review of Systems ROS Statement: Those systems with pertinent positive or pertinent negative responses have been documented in the HPI. ROS Other: All systems not noted in ROS Statement are negative. Past Medical History Past Medical History: No Reported History Additional Past Medical History / Comment(s): HEART MURMUR. HYPOGLYCEMIA AT AGE 14, RESOLVED. HAVING BLOOD IN STOOL R/T fissure. History of Any Multi-Drug Resistant Organisms: None Reported Past Surgical History: Section, Tubal Ligation Additional Past Surgical History / Comment(s): WISDOM TEETH. LT THUMB TENDON SURGERY. C-S X2. Colonoscopy. Past Anesthesia/Blood Transfusion Reactions: No Reported Reaction Past Psychological History: ADD/ADHD, Anxiety Smoking Status: Current some day smoker Past Alcohol Use History: None Reported Past Drug Use History: None Reported - Past Family History Mother Family Medical History: Cancer Father Family Medical History: Hypertension General Exam Limitations: no limitations General appearance: alert, in no apparent distress Eye exam: Present: normal appearance, PERRL, EOMI. Absent: scleral icterus, conjunctival injection, periorbital swelling ENT exam: Present: mucous membranes moist, TM's normal bilaterally. Absent: normal oropharynx (pharyngeal erythema, tonsillar hypertrophy. No tonsillar exudate. Tonsils are symmetric and uvula is midline.) Neck exam: Present: normal inspection. Absent: tenderness, meningismus, lymphadenopathy Respiratory exam: Present: normal lung sounds bilaterally. Absent: respiratory distress, wheezes, rales, rhonchi, stridor Cardiovascular Exam: Present: normal rhythm, tachycardia, normal heart sounds. Absent: systolic murmur, diastolic murmur, rubs, gallop, clicks GI/Abdominal exam: Present: soft, normal bowel sounds. Absent: distended, tenderness, guarding, rebound, rigid Neurological exam: Present: alert, oriented X3, CN II-XII intact Psychiatric exam: Present: normal affect, normal mood Skin exam: Present: warm, dry, intact, normal color. Absent: rash Course Vital Signs 06/26/20 06/27/20 06/27/20 21:51 00:06 00:49 Temperature 102.1 F H 98.7 F Pulse Rate 122 H 111 H Respiratory 22 18 18 Rate Blood Pressure 145/104 O2 Sat by Pulse 100 98 Oximetry Medical Decision Making - Medical Decision Making 24-year-old female patient presents to the emergency department today for evaluation of upper respiratory symptoms and fever. Physical examination did reveal pharyngeal erythema by her tonsils are symmetric and her uvula is midline. She had no exudate. Chest x-ray is negative. Chest negative for strep, flu, and COVID-19. Her urinalysis was negative. I did discuss findings and results with her. We did discuss possibility of false negative on her COVID-19 test and she is instructed to quarantine. She is instructed to follow- up with her primary care physician for recheck in 1-2 days. Return parameters were discussed in detail. She verbalizes understanding and agrees with this plan. My attending is Dr. Garber. - Lab Data Lab Results 06/26/20 06/26/20 06/26/20 Range/Units 21:58 23:30 23:30 Urine Color Urine Appearance (Clear) Urine pH (5.0-8.0) Ur Specific [place] (1.001-1.035) Urine Protein (Negative) Urine Glucose (UA) (Negative) Urine Ketones (Negative) Urine Blood (Negative) Urine Nitrite (Negative) Urine Bilirubin (Negative) Urine Urobilinogen (<2.0) mg/dL Ur Leukocyte Esterase (Negative) Urine RBC (0-5) /hpf Urine WBC (0-5) /hpf Ur Squamous Epith Cells (0-4) /hpf Urine Bacteria (None) /hpf Urine Mucus (None) /hpf Urine HCG, Qual (Not Detectd) Coronavirus (PCR) Not Detected (Not Detectd) Influenza Type A RNA Not Detected (Not Detectd) Influenza Type B (PCR) Not Detected (Not Detectd) Group A Strep Rapid Negative (Negative) 06/26/20 06/26/20 Range/Units 23:34 23:34 Urine Color Yellow Urine Appearance Cloudy H (Clear) Urine pH 8.0 (5.0-8.0) Ur Specific [place] 1.010 (1.001-1.035) Urine Protein Negative (Negative) Urine Glucose (UA) Negative (Negative) Urine Ketones Negative (Negative) Urine Blood Negative (Negative) Urine Nitrite Negative (Negative) Urine Bilirubin Negative (Negative) Urine Urobilinogen <2.0 (<2.0) mg/dL Ur Leukocyte Esterase Negative (Negative) Urine RBC 2 (0-5) /hpf Urine WBC <1 (0-5) /hpf Ur Squamous Epith Cells 4 (0-4) /hpf Urine Bacteria Rare H (None) /hpf Urine Mucus Rare H (None) /hpf Urine HCG, Qual Not Detected (Not Detectd) Coronavirus (PCR) (Not Detectd) Influenza Type A RNA (Not Detectd) Influenza Type B (PCR) (Not Detectd) Group A Strep Rapid (Negative) - Radiology Data Radiology results: report reviewed, image reviewed 2 views of the chest are obtained. Report is reviewed in its entirety. Impression by Dr. Green shows normal chest. Disposition Clinical Impression: Viral upper respiratory infection Disposition: HOME SELF-CARE Condition: Good Instructions (If sedation given, give patient instructions): Upper Respiratory Infection (ED) Additional Instructions: Increase fluids. Rest. Follow-up with your primary care physician for recheck in 1-2 days. Use [id number] cold relief medications to help with symptoms. Return to the emergency department for any new, worsening, or concerning symptoms Prescriptions: guaiFENesin-DM 600/30MG [Mucinex Dm] 2 each PO Q12HR PRN #20 tab.er.12h PRN Reason: Cough Albuterol Sulfate [Proair Hfa] 1 - 2 puff INHALATION Q6HR PRN #1 inhaler PRN Reason: Shortness Of Breath Is patient prescribed a controlled substance at d/c from ED?: No Referrals: Kimberly Ramachandran MD [Primary Care Provider] - 1-2 days Time of Disposition: 00:40
[2020-06-27 00:50] VITALS: PULSE 111; TEMP 98.7
== END 2020-06-27 00:50 | disposition home or self-care (01) ==
LOC: EC 21:41
DX: J06.9 Acute upper respiratory infection, unspecified (principal); R00.0 Tachycardia, unspecified; F90.9 Attention-deficit hyperactivity disorder, unspecified type; F41.9 Anxiety disorder, unspecified; Z79.899 Other long term (current) drug therapy; F17.200 Nicotine dependence, unspecified, uncomplicated; Z20.822 Contact with and (suspected) exposure to COVID-19; Z98.51 Tubal ligation status; Z88.8 Allergy status to other drugs, medicaments and biological substances
CPT/HCPCS: 71046; 81001; 81025; 87081; 87430; 87502; 87635; 99285

== ENCOUNTER 2021-09-04 17:14 | Emergency (ER) | payer BC, OTHER ==
[2021-09-04 17:27] VITALS: RESP 16; TEMP 98.6
[2021-09-04 18:04] LABS: Basophils # (A) 0.1 k/uL (0-0.2); Basophils % (A) 1 %; Eosinophils # (A) 0.2 k/uL (0-0.7); Eosinophils % (A) 1 %; HCT 40.7 % (34.0-46.0); HGB 13.3 gm/dL (11.4-16.0); Lymphocytes # (A) 2.2 k/uL (1.0-4.8); Lymphocytes % (A) 20 %; MCH 29.8 pg (25.0-35.0); MCHC 32.5 g/dL (31.0-37.0); MCV 91.5 fL (80.0-100.0); Mean Platelet Volume 7.7; Monocytes # (A) 0.9 k/uL (0-1.0); Monocytes % (A) 8 %; Neutrophils # (A) 7.4 k/uL (1.3-7.7); Neutrophils % (A) 68 %; Platelet Count 203 k/uL (150-450); RBC 4.45 m/uL (3.80-5.40); RDW 13.4 % (11.5-15.5)
--- NOTE | 2021-09-04 18:08 | ED ---
General Adult HPI - General Chief complaint: Chest Pain Stated complaint: Arm numbness, rib and chest pain, side pain Time Seen by Provider: 09/04/21 17:28 Source: patient, RN notes reviewed, old records reviewed Mode of arrival: ambulatory Limitations: no limitations - History of Present Illness Initial comments: 69-year-old female presenting with left shoulder pain and left-sided chest pain. Symptoms have been present for the past several days. Patient denies injury. She was seen at outside hospital and diagnosed with musculoskeletal pain. She does report some mild dyspnea. No cough. No fever. No central chest pain. No diaphoresis. No previous history of CAD, PE or pneumothorax. - Related Data Home Medications Medication Instructions Recorded Confirmed Albuterol Sulfate [Proair Hfa] 1 - 2 puff INHALATION RT-Q6H PRN 09/04/21 09/04/21 Allergies Allergy/AdvReac Type Severity Reaction Status Date / Time hydrocodone AdvReac passed out" Verified 09/04/21 18:15 Review of Systems ROS Statement: Those systems with pertinent positive or pertinent negative responses have been documented in the HPI. ROS Other: All systems not noted in ROS Statement are negative. Past Medical History Past Medical History: No Reported History Additional Past Medical History / Comment(s): HEART MURMUR. HYPOGLYCEMIA AT AGE 14, RESOLVED. HAVING BLOOD IN STOOL R/T fissure. History of Any Multi-Drug Resistant Organisms: None Reported Past Surgical History: Section, Tubal Ligation Additional Past Surgical History / Comment(s): WISDOM TEETH. LT THUMB TENDON SURGERY. C-S X2. Colonoscopy. Past Anesthesia/Blood Transfusion Reactions: No Reported Reaction Past Psychological History: ADD/ADHD, Anxiety Smoking Status: Current some day smoker Past Alcohol Use History: None Reported Past Drug Use History: None Reported - Past Family History Mother Family Medical History: Cancer Father Family Medical History: Hypertension General Exam Limitations: no limitations General appearance: alert, in no apparent distress Head exam: Present: atraumatic, normocephalic Eye exam: Present: normal appearance, PERRL ENT exam: Present: normal exam Neck exam: Present: normal inspection. Absent: tenderness, meningismus Respiratory exam: Present: normal lung sounds bilaterally, chest wall tenderness (Left lateral). Absent: respiratory distress, wheezes Cardiovascular Exam: Present: regular rate, normal rhythm GI/Abdominal exam: Present: soft. Absent: distended, tenderness, guarding, rebound Extremities exam: Present: full ROM (Pain with range of motion of the left shoulder over the deltoid and trapezius) Neurological exam: Present: alert, oriented X3, CN II-XII intact. Absent: motor sensory deficit Psychiatric exam: Present: normal affect, normal mood Skin exam: Present: warm, dry, intact. Absent: cyanosis, diaphoretic Course Vital Signs 09/04/21 09/04/21 17:25 18:04 Temperature 98.6 F Pulse Rate 94 Respiratory 16 Rate Blood Pressure 134/72 O2 Sat by Pulse 100 99 Oximetry EKG Findings - EKG Comments: EKG Findings:: EKG: Sinus rhythm rate of 93, NM interval 135, QRS duration 103, QTC [address] segment elevation. Medical Decision Making - Medical Decision Making 26-year-old female with left-sided shoulder and upper chest pain. Pain is atypical. It is associated with some mild dyspnea. I did obtain laboratory tests included CBC, CMP, troponin and d-dimer. This is all negative with the exception of a mildly elevated d-dimer at 1. I did perform CT angiography which was negative for central pulmonary embolism or acute findings. Patient's EKG is sinus rhythm without definitive sign of ischemia. The x-rays are unremarkable. I do feel this is likely musculoskeletal in nature. Patient will continue Motrin at home. She'll follow-up with her primary care physician. - Lab Data Result diagrams: 09/04/21 17:55 09/04/21 17:55 Lab Results 09/04/21 09/04/21 09/04/21 Range/Units 17:55 17:55 17:55 WBC 11.0 H (3.8-10.6) k/uL RBC 4.45 (3.80-5.40) m/uL Hgb 13.3 (11.4-16.0) gm/dL Hct 40.7 (34.0-46.0) % MCV 91.5 (80.0-100.0) fL MCH 29.8 (25.0-35.0) pg MCHC 32.5 (31.0-37.0) g/dL RDW 13.4 (11.5-15.5) % Plt Count 203 (150-450) k/uL MPV 7.7 Neutrophils % 68 % Lymphocytes % 20 % Monocytes % 8 % Eosinophils % 1 % Basophils % 1 % Neutrophils # 7.4 (1.3-7.7) k/uL Lymphocytes # 2.2 (1.0-4.8) k/uL Monocytes # 0.9 (0-1.0) k/uL Eosinophils # 0.2 (0-0.7) k/uL Basophils # 0.1 (0-0.2) k/uL PT 10.2 (9.0-12.0) sec INR 0.9 (<1.2) APTT 24.3 (22.0-30.0) sec D-Dimer 1.02 H (<0.60) mg/L FEU Sodium 140 (137-145) mmol/L Potassium 4.3 (3.5-5.1) mmol/L Chloride 108 H (98-107) mmol/L Carbon Dioxide 26 (22-30) mmol/L Anion Gap 6 mmol/L BUN 6 L (7-17) mg/dL Creatinine 0.74 (0.52-1.04) mg/dL Est GFR (CKD-EPI)AfAm >90 (>60 ml/min/1.73 sqM) Est GFR (CKD-EPI)NonAf >90 (>60 ml/min/1.73 sqM) Glucose 75 (74-99) mg/dL Calcium 8.8 (8.4-10.2) mg/dL Magnesium 1.9 (1.6-2.3) mg/dL Total Bilirubin 0.5 (0.2-1.3) mg/dL AST 27 (14-36) U/L ALT 21 (4-34) U/L Alkaline Phosphatase 49 (38-126) U/L Troponin I (0.000-0.034) ng/mL Total Protein 7.4 (6.3-8.2) g/dL Albumin 4.4 (3.5-5.0) g/dL 09/04/21 Range/Units 17:55 WBC (3.8-10.6) k/uL RBC (3.80-5.40) m/uL Hgb (11.4-16.0) gm/dL Hct (34.0-46.0) % MCV (80.0-100.0) fL MCH (25.0-35.0) pg MCHC (31.0-37.0) g/dL RDW (11.5-15.5) % Plt Count (150-450) k/uL MPV Neutrophils % % Lymphocytes % % Monocytes % % Eosinophils % % Basophils % % Neutrophils # (1.3-7.7) k/uL Lymphocytes # (1.0-4.8) k/uL Monocytes # (0-1.0) k/uL Eosinophils # (0-0.7) k/uL Basophils # (0-0.2) k/uL PT (9.0-12.0) sec INR (<1.2) APTT (22.0-30.0) sec D-Dimer (<0.60) mg/L FEU Sodium (137-145) mmol/L Potassium (3.5-5.1) mmol/L Chloride (98-107) mmol/L Carbon Dioxide (22-30) mmol/L Anion Gap mmol/L BUN (7-17) mg/dL Creatinine (0.52-1.04) mg/dL Est GFR (CKD-EPI)AfAm (>60 ml/min/1.73 sqM) Est GFR (CKD-EPI)NonAf (>60 ml/min/1.73 sqM) Glucose (74-99) mg/dL Calcium (8.4-10.2) mg/dL Magnesium (1.6-2.3) mg/dL Total Bilirubin (0.2-1.3) mg/dL AST (14-36) U/L ALT (4-34) U/L Alkaline Phosphatase (38-126) U/L Troponin I <0.012 (0.000-0.034) ng/mL Total Protein (6.3-8.2) g/dL Albumin (3.5-5.0) g/dL Disposition Clinical Impression: Atypical chest pain, Left shoulder strain Disposition: HOME SELF-CARE Condition: Good Instructions (If sedation given, give patient instructions): Chest Pain (ED), Shoulder Sprain (ED) Is patient prescribed a controlled substance at d/c from ED?: No Referrals: Kimberly Ramachandran MD [Primary Care Provider] - 1-2 days Time of Disposition: 20:12
[2021-09-04 18:13] LABS: ALT 21 U/L (4-34); AST 27 U/L (14-36); African American GFR (CKD) >90 (>60 ml/min/1.73 sqM); Albumin 4.4 g/dL (3.5-5.0); Alkaline Phosphatase 49 U/L (38-126); Blood Urea Nitrogen 6 mg/dL (7-17); Calcium 8.8 mg/dL (8.4-10.2); Carbon Dioxide 26 mmol/L (22-30); Chloride 108 mmol/L (98-107); Glucose 75 mg/dL (74-99); Magnesium 1.9 mg/dL (1.6-2.3); Non-African American GFR(CKD) >90 (>60 ml/min/1.73 sqM); Potassium 4.3 mmol/L (3.5-5.1); Total Bilirubin 0.5 mg/dL (0.2-1.3); Total Protein 7.4 g/dL (6.3-8.2)
[2021-09-04 18:22] LABS: Anion Gap 6 mmol/L; Sodium 140 mmol/L (137-145)
--- NOTE | 2021-09-04 18:36 | XR ---
EXAMINATION TYPE: XR shoulder complete LT DATE OF EXAM: 09/04/2021 6:13 PM INDICATION: Patient age:Female; 26 years old; Reason for study: pain; COMPARISON: None TECHNIQUE: The left shoulder was examined in AP, internally rotated and scapular Y projections. . FINDINGS: No evidence of acute osseous pathology, joint dislocation, or soft tissue swelling. The remaining por tions of the visualized chest are unremarkable. IMPRESSION: No acute osseous pathology.
--- NOTE | 2021-09-04 18:37 | XR ---
EXAMINATION TYPE: XR chest 2V DATE OF EXAM: 09/04/2021 6:13 PM COMPARISON: Multiple radiographs, with the most recent on 06/26/2020 TECHNIQUE: XR chest 2V Frontal and lateral views of the chest. CLINICAL INDICATION:Female, 26 years old with history of Chest Pain; FINDINGS: Lungs/Pleura: Low lung volumes are present. There is no evidence of pleural effusion, focal consolida tion, or pneumothorax. Pulmonary vascularity: Unremarkable. Heart/mediastinum: Cardiomediastinal silhouette is unremarkable. Musculoskeletal: No acute osseous pathology. IMPRESSION: Low lung volumes with a generalized hazy appearance which likely represents atelectasis. No evidence for acute process. No significant change from prior
[2021-09-04 18:39] LABS: INR 0.9 (<1.2); Partial Thromboplastin Time 24.3 sec (22.0-30.0); Prothrombin Time 10.2 sec (9.0-12.0)
--- NOTE | 2021-09-04 20:04 | CT ---
EXAMINATION TYPE: CT angio chest CT DLP: 583.5 mGycm, Automated exposure control for dose reduction was used. DATE OF EXAM: 09/04/2021 7:21 PM COMPARISON: Chest radiograph from same day. CLINICAL INDICATION:Female, 26 years old with history of cp pos dimer; scapular and chest pain. sob. elevated d-dimer TECHNIQUE/CONTRAST: CTA scan of the thorax is performed with IV Contrast, patient injected with 87 mL of Isovue 370, pulm onary embolism protocol. MIP images are created and reviewed. FINDINGS: Artifact limits evaluation. Pulmonary Artery: There is no evidence for a central filling defect within the pulmonary vasculature to suggest acute pulmonary embolism. Limited evaluation of the segmental and subsegmental branches se condary to bolus timing. The pulmonary artery is of normal size. Lungs/Pleura: No evidence of focal consolidation, pleural effusion or pneumothorax. Airway: Large airways are patent. Heart: Heart is within normal limits for size.. Vasculature: No evidence of aortic aneurysm. Mediastinum: No gross evidence of adenopathy. Musculoskeletal: No acute osseous abnormalities Soft Tissues: Unremarkable. Lower neck: No significant findings. Upper Abdomen: Diffuse low-attenuation to the liver parenchyma. IMPRESSION: 1. No evidence of central pulmonary embolism. Limited evaluation of the segmental and subsegmental br anches. 2. Hepatic steatosis.
[2021-09-04] MEDS ORDERED: HYDROmorphone 0.5 MG/0.5 ML SYRINGE IVP STA (20:10)
[2021-09-04] MEDS ORDERED: KETOROLAC 15 MG/ML 1 ML VIAL IM STA (20:10)
[2021-09-04 20:54] VITALS: BP 120/74; PULSE 77
== END 2021-09-04 20:53 | disposition home or self-care (01) ==
LOC: EC 17:14
DX: S46.912A Strain of unspecified muscle, fascia and tendon at shoulder and upper arm level, left arm, initial encounter (principal); R07.89 Other chest pain; F17.200 Nicotine dependence, unspecified, uncomplicated; Z88.5 Allergy status to narcotic agent; X58.XXXA Exposure to other specified factors, initial encounter
CPT/HCPCS: 36415; 93005; 85379; 80053; 83735; 84484; 85025; 85610; 85730; 73030; 71046; 71275; 99285; 96374; 96372; J1885; J1170; Q9967